=== PATIENT | male | born 1955 | race Caucasian/White ===

== ENCOUNTER 2016-10-25 09:21 | Day surgery (SDC) | payer BC, OTHER ==
[2016-10-22 16:43] LABS: ASPARTATE AMINO TRANSFERASE 25 U/L (15-37); BLOOD UREA NITROGEN 15 mg/dL (7-18)
[~2016-10-25] VITALS: Ht 172.7 cm; Wt 91.0 kg
[~2016-10-25 09:21] MED LIST: CAPT25TA3 PO
[2016-10-25] MEDS ORDERED: LACTATED RINGERS 1,000 ML IV SCH ×2 (10:03→12:03)
[2016-10-25 10:23] VITALS: BP 128/74
[2016-10-25] MEDS ORDERED: MIDAZOLAM 1 MG/ML, 2ML ONE (10:31)
[2016-10-25] MEDS ORDERED: FENTANYL PF 250 MCG/5ML ONE (10:31)
[2016-10-25] MEDS ORDERED: KETAMINE 10 MG/ML, 20ML ONE (10:31)
[2016-10-25] MEDS ORDERED: BUPIVACAINE/PF-EPI 0.5% 1:200K ONE (10:58)
[2016-10-25] MEDS ORDERED: BUPIVACAINE/PF 0.25% ONE (11:03)
[2016-10-25] MEDS ORDERED: DEXAMETHASONE 4 MG/ML, 1ML ONE (11:10)
[2016-10-25] MEDS ORDERED: ONDANSETRON 2MG/ML, 2ML ONE (11:10)
[2016-10-25] MEDS ORDERED: PROPOFOL 10 MG/ML, 20ML ONE (11:10)
[2016-10-25] MEDS ORDERED: ROCURONIUM 10 MG/ML ONE (11:10)
[2016-10-25] MEDS ORDERED: CEFAZOLIN 1,000 MG ONE (11:10)
[2016-10-25] MEDS ORDERED: SUCCINYLCHOLINE 20 MG/ML, 10ML ONE (11:10)
[2016-10-25] MEDS ORDERED: KETOROLAC 30 MG/1 ML ONE (11:10)
[2016-10-25] MEDS ORDERED: BUPIVACAINE/PF-EPI 0.5% 1:200K INFIL ONE (11:34)
[2016-10-25] MEDS ORDERED: hydrALAzine 20 MG/ML, 1ML IV PRN (12:00)
[2016-10-25] MEDS ORDERED: LABETALOL 5MG/ML, 20ML IV PRN (12:00)
[2016-10-25] MEDS ORDERED: PROMETHAZINE 25 MG/ML, 1ML IV PRN (12:00)
[2016-10-25] MEDS ORDERED: HYDROmorphone 1 MG/ML, 1ML IV PRN (12:00)
[2016-10-25] MEDS ORDERED: ACETAMINOPHEN 325 MG TABLET PO PRN (12:00)
[2016-10-25] MEDS ORDERED: OXYcodone 5 MG/5 ML ORAL.SOL UDC PO PRN (12:00)
[2016-10-25] MEDS ORDERED: MEPERIDINE/PF 25MG/0.5ML IVPush PRN (12:00)
[2016-10-25] MEDS ORDERED: FENTANYL PF 100 MCG/2ML IV PRN (12:00)
[2016-10-25] MEDS ORDERED: PROMETHAZINE 25 MG/ML, 1ML IM PRN (12:30)
[2016-10-25] MEDS ORDERED: ONDANSETRON 2MG/ML, 2ML IVPush PRN (12:30)
[2016-10-25] MEDS ORDERED: morphine SULFATE 10 MG/ML, 1ML IVPush PRN (12:30)
[2016-10-25] MEDS ORDERED: OXYcodone/APAP 7.5/325MG TABLET ONE (14:41)
[2016-10-25] MEDS ORDERED: OXYcodone/APAP 7.5/325MG TABLET PO PRN (15:00)
== END 2016-10-25 15:29 | disposition home or self-care (01) ==
LOC: OUT 09:21
PROVIDERS: ATTEND Surgery
DX: K42.9 Umbilical hernia without obstruction or gangrene (principal); I10 Essential (primary) hypertension; Z88.0 Allergy status to penicillin
CPT/HCPCS: 36415; 49585; 80053; J0330; J0690; J1100; J1885; J2250; J2405; J2704; J3010; J7120; J3490